=== PATIENT | male | born 1995 | race Caucasian/White ===

== ENCOUNTER → 2022-12-02 23:07 | Outpatient (CLI) | payer BC, SELFPAY ==
[2022-12-02 18:09] LABS: Basophils % 0.4 % (0.1-2.0); Eosinophils # 0.1 K/mm3 (0.0-0.4); Eosinophils % 1.8 % (0.1-12.0); Hematocrit 50.2 % (42.0-52.0); Hemoglobin 16.6 g/dL (14.1-18.0); Lymphocytes # 2.3 K/mm3 (0.7-4.5); Lymphocytes % 31.4 % (10-50); Mean Corpuscular HGB Conc 33.1 g/dL (31.8-35.4); Mean Corpuscular Hemoglobin 29.3 pg (27.0-31.2); Mean Corpuscular Volume 88.3 fl (80-94); Mean Platelet Volume 10.6 fl (7.4-10.4); Monocytes # 0.5 K/mm3 (0.1-1.0); Monocytes % 6.5 % (1.7-9.3); Neutrophils # 4.4 K/mm3 (1.8-7.8); Platelet Count 169 K/mm3 (142-424); Red Blood Count 5.68 M/mm3 (4.60-6.20); Red Cell Distribution Width 13.1 % (11.5-17.5); White Blood Count 7.3 K/mm3 (4.8-10.8)
[2022-12-02 18:17] LABS: Alanine Aminotransferase 28 U/L (12-78); Albumin Level 4.7 g/dl (3.5-5.0); Albumin/Globulin Ratio 1.4 (1.1-1.8); Alkaline Phosphatase 102 U/L (38-126); Anion Gap 19.5 mEq/L (5-15); Aspartate Amino Transferase 38 U/L (17-59); Bilirubin,Total 0.6 mg/dl (0.2-1.3); Blood Urea Nitrogen 14 mg/dl (9-20); Calcium 9.6 mg/dl (8.4-10.2); Carbon Dioxide 27 mmol/L (22.0-30.0); Chloride 98 mmol/L (98-107); Chol/HDL Ratio 5.8 (1-3.5); Cholesterol 175 mg/dl (140-200); Estimated Glomerular Filt Rate 114 ml/min (>60); GFR (African American) 138 ML/MIN (>60); Globulin 3.4 g/dL (1.3-3.2); Glucose 87 mg/dl (74-100); HDL Cholesterol 30 mg/dl (40-60); Potassium 4.5 mmoL/L (3.5-5.1); Sodium 140 mmol/L (136-145); Total Protein,Serum 8.1 g/dl (6.3-8.2); Triglycerides 247 mg/dl (30-150); VLDL Cholesterol 49 mg/dL (0-40)
[2022-12-02 18:30] LABS: Hemoglobin A1C 5.1 % (4.0-6.0)
[2022-12-02 18:47] LABS: Thyroid Stimulating Hormone 0.89 uIU/mL (0.465-4.68)
== END ==
PROVIDERS: PCP Nurse Practitioner; Visit Provider Nurse Practitioner
DX: Z00.00 Encounter for general adult medical examination without abnormal findings (principal); Z13.0 Encounter for screening for diseases of the blood and blood-forming organs and certain disorders involving the immune mechanism; Z13.1 Encounter for screening for diabetes mellitus; Z13.220 Encounter for screening for lipoid disorders; Z13.29 Encounter for screening for other suspected endocrine disorder
CPT/HCPCS: 80053; 80061; 83036; 84443; 85025

== ENCOUNTER → 2022-12-09 08:01 | Outpatient (CLI) | payer BC, SELFPAY | PROVIDERS: PCP Nurse Practitioner; Visit Provider Nurse Practitioner | DX: Z00.00 Encounter for general adult medical examination without abnormal findings (principal) ==

== ENCOUNTER 2024-02-21 07:39 | Outpatient (CLI) | payer BC, SELFPAY ==
--- NOTE | 2024-02-21 07:46 | XR_ITS ---
FINAL REPORT CLINICAL HISTORY: right hip pain COMPARISON: None FINDINGS: RIGHT HIP 3 views of the right hip demonstrate no acute fracture or dislocation. The joint spaces appear normal. The visualized bony structures are well aligned. No soft tissue abnormality is seen. IMPRESSION: No acute bony abnormality. Reviewed, Interpreted and Dictated by Michael Kate MD Transcribed by Nila Jasso Authenticated and [facility]
== END 2024-02-21 23:59 | disposition home or self-care (01) ==
LOC: RAD 07:41
PROVIDERS: PCP Nurse Practitioner; Visit Provider Nurse Practitioner
DX: M25.551 Pain in right hip (principal)
CPT/HCPCS: 73502

== ENCOUNTER 2024-02-27 15:56 | Outpatient (RCR) | payer BC, SELFPAY ==
--- NOTE | 2024-02-27 17:53 | HMH.PTOPEV ---
PT Outpatient Evaluation Rehab PT Outpatient Evaluation Start: 02/27/24 16:01 Freq: Status: Active Protocol: Document 02/27/24 16:02 PRINCEARIANNA (Rec: 02/27/24 17:52 SUSY [id number]) E-signed By Kimberly Morel, PT Outpatient Therapy Subjective History Subjective History Pt is a 28 y/o male who reports onset of R lateral hip pain in spring when he started playing softball. Pt denies trauma or injury. Pt reports pain was mild and would ease off in 2-3 days. Pt reports re-exacerbation of pain while playing summer softball 2 weeks ago. Pt reports intensity of pain worsened and pain was more constant in nature. Pt reports pain is aggravated by prolonged standing/walking, walking with his right leg externally rotated, pushing off the right leg especially when in ER, leading up/down stairs with the right leg and traversing steep terrain. Pt reports his leg would often feel like it would give out on him, denies falls due to this . Pt denies clicking, catching , or locking sensations of the hip. Pt reports mild improvement in pain since re- exacerbation; however, states he has not been playing softball, has changed his walking pattern and is leading with his left leg with stairs at work. Pt had a R hip xray on 02/21/24 with impression of No acute bony abnormality. Pt reports he was prescribed an anti-inflammatory medication he took for 2 days without noted improvements so he quit taking it. Pt denies further comorbidities to report. 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 Chief Complaint Pain,Weakness Symptom Type Ache,Sharp,Dull Symptoms Relieved By Rest/Positioning Symptoms Aggravated By Standing,Physical Activity, Twisting,Walking Current Functional Limitations Standing,Recreation Activity, Walking,Stairs Symptom Description Constant but Variable Level of pain today (0-10) 2 Pain scale - at its best (0-10) 0 Pain scale - at its worst (0-10) 5 Hip/Knee Eval Gait Observation General Gait Pattern Observation No Deviations/Normal Assistive Device Assistive Devices None / NA Palpation Tenderness right Knee Palpation Overall Comment 1/4 TTP of glute med/min, greather trochanter Hip Palpation Findings Tenderness MMT Hip Flexion Strength Grade 4 Good Hip Abduction Strength Grade 4 Good Hip Adduction Strength Grade 5 Normal Hip Extension Strength Grade 4 Good Hip External Rotation Strength Grade 4 Good Hip Internal Rotation Strength Grade 4 Good ROM Hip Flexion w/Knee Flexed Active Range 115 of Motion (degrees) Hip External Rotation Active Range of 35 Motion (degrees) Hip Internal Rotation Active Range of 40 Motion (degrees) Special Tests Hip Ethan Test Negative Right Hip Piriformis Test Negative Right Sciatic Nerve Tension Test Negative Right Hip Scouring (Quadrant) Test Negative Right Lower Extremity Functional Index Activities Today, do you or would you have any difficulty at all with: a.Any of your usual work, housework or A little bit of difficulty school activities b. Your usual hobbies, recreational or Moderate difficulty sporting activities c. Getting into or out of the bath No difficulty d. Walking between rooms A little bit of difficulty e. Putting on your shoes or socks A little bit of difficulty f. Squatting A little bit of difficulty g. Lifting an object, like a bag of No difficulty groceries from the floor h. Performing light activities around A little bit of difficulty your home i. Performing heavy activities around Moderate difficulty your home j. Getting into or out of a car A little bit of difficulty k. Walking 2 blocks No difficulty l. Walking a mile A little bit of difficulty m. Going up or down 10 stairs (about 1 A little bit of difficulty flight of stairs) n. Standing for 1 hour A little bit of difficulty o. Sitting for 1 hour No difficulty p. Running on even ground A little bit of difficulty q. Running on uneven ground Moderate difficulty r. Making sharp turns while running fast Moderate difficulty s. Hopping A little bit of difficulty t. Rolling over in bed A little bit of difficulty LEFI Score Lower Extremity Functional Index Score 60 Outpatient Therapy Assessment Impairments Problems/Impairmments Palpation Tenderness,Impaired Range of Motion,Impaired Strength,Impaired Gait Pattern ,Impaired Walking,Impaired Stair Climbing,Impaired Incline Stepping,Impaired Recreational Activities, Impaired Running,Impaired Work Activities,Subjective C/O Pain,Impaired Self Care/Self Management Prognosis Rehab Potential Good Clinical Impression Consistent with Diagnosis Yes Short Term Goals Number of Weeks 2 Improve Self Care/Self Management Yes Patient to be Ind w/ HEP Yes Mcfp Goals Number of Weeks 4-6 Increase Range of Motion Yes: Improve R hip AROM IR/ER to 45 Increase Strength Yes: Improve R hip/core strength to 4+-5/5 grossly to assist with function Improve Ability to Climb Stairs Yes: traverse fork lift steps with pain 2/10 or less to assist with work Return to Recreational Activities Yes: report ability to play softball with pain 2/10 or less Improve LEFI Score Yes: Improve score to 70/80 to improve overall QOL Decrease Subjective C/O Pain Yes: Improve pain at worst to 2-3/10 to improve overall QOL Outpatient Therapy Plan of Care Treatment Plan May Include Therapeutic Exercise Including Home Yes Exercise Program Manual Therapy Techniques Yes Neuromuscular Re-education Yes Therapeutic Activities to Return to Yes Previous Functional/Work Level Gait Training Yes ADL/Self Care Education Yes Mechanical Traction Yes Dry Needling Yes Thermal Modalities Yes Electrical Stimulation Yes Ultrasound/Phonophoresis Yes Iontophoresis Yes Orthotics/Bracing/Splinting Yes Vasopneumatic Compression Pump Yes Massage Yes Eval/Re-Eval Yes Frequency Times per week 2 Duration Number of Weeks 4-6 Addendums This patient is a candidate for social No or vocational rehab? Patient/Guardian verbally acknowledges Yes understanding of treatment program and consents to further treatment? Patient/Guardian verbally acknowledges Yes understanding of diagnosis, prognosis and goals for treatment? Eval Complexity PT Charges 70377 - Low Complexity Shoulder/Elbow Eval Shoulder Objective Measurements Elbow Objective Measurements PHYSICIAN CERTIFICATION: I certify the specified therapy services for Scottie Mcneil are required, authorized, and reviewed every 30 days.
== END 2024-02-27 15:59 | disposition home or self-care (01) ==
LOC: PT 15:56
PROVIDERS: Visit Provider Nurse Practitioner
DX: M25.551 Pain in right hip (principal)
CPT/HCPCS: 97163

== ENCOUNTER 2025-03-13 16:09 | Outpatient (CLI) | payer BC, SELFPAY ==
--- OUTSIDE RECORDS SUMMARY | 2025-03-13 16:11 | XMS_ITS | Clinical Summary ---
Author Organization [facility] Address [address] [place] [id number] Care Team Providers Care Improvement Engineer Name Role Phone Pcp, No Primary Care Provider [phone] Source Comments This information has been disclosed to you from confidential records protectedfrom disclosure by state law. You shall make no further disclosure of thisinformation without the specific, written, and informed release of theindividual to whom it pertains, or as otherwise permitted by law. A generalauthorization for the release of medical or other information is not sufficientfor the purposes of therelease of HIV test results or diagnoses. [id number] Allergies Active Allergy Reactions Criticality Noted Date Comments Hydrocodone-Acetaminophen 05/26/2018 Other reaction(s): Itching Medications aspirin-acetamin ophen-caffeine (EXCEDRIN EXTRA STRENGTH) 250-250-65 mg per tablet Take 1 tablet by mouth every 6 hours as needed for Pain. 30 tablet 01/16/2021 Active Social History Tobacco Use Types Packs/Day Years Used Date Smoking Tobacco: Former Smokeless Tobacco: Current Chew Sex and Gender Information Value Date Recorded Sex Assigned at Not on file Legal Sex Male 6:33 PM EST Gender Identity Not on file Sexual Orientation Not on file Last Filed Vital Signs Vital Sign Reading Time Taken Comments Blood Pressure 139/72 01/16/2021 6:05 AM EDT Pulse 58 01/16/2021 6:05 AM EDT Temperature 36.4 C (97.6 F) 01/16/2021 6:05 AM EDT Respiratory Rate 16 01/16/2021 6:05 AM EDT Oxygen Saturation 98% 01/16/2021 6:05 AM EDT Inhaled Oxygen Concentration 98% 01/16/2021 6 :05 AM EDT Weight - - Height - - Body Mass Index - - Plan of Treatment Not on file Care Teams Improvement Engineer Relationship Specialty Start Date End Date Pcp, No No Address PCP - General 01/16/21
--- OUTSIDE RECORDS SUMMARY | 2025-03-13 16:11 | XMS_ITS | Clinical Summary ---
Author Organization Healthcare Address [address] [id number] Care Team Providers Care Radiation Therapy Technician Name Role Phone Marlen Quintanilla APRN Primary Care Provider [phone] Allergies Active Allergy Reactions Criticality Noted Date Comments Hydrocodone-Acetaminophen Itching Medium 05/26/2018 Other reaction(s): Itching Medications No known medications Active Problems No known active problems Social History Tobacco Use Types Packs/Day Years Used Date Smoking Tobacco: Never Assessed Sex and Gender Information Value Date Recorded Sex Assigned at Not on file Legal Sex Male 1:10 PM EST Gender Identity Not on file Sexual Orientation Not on file Last Filed Vital Signs Vital Sign Reading Time Taken Comments Blood Pressure 146/85 08/02/2023 1:40 PM EST Pulse 87 08/02/2023 1:40 PM EST Temperature 36.8 C (98.3 F) 08/02/2023 1:40 PM EST Respiratory Rate 18 08/02/2023 1:40 PM EST Oxygen Saturation 97% 08/02/2023 1:40 PM EST Inhaled Oxygen Concentration - - Weight 108 kg (237 lb 14 oz) 08/02/2023 1:40 PM EST Height 179.1 cm (5' 10.5 ) 08/02/2023 1:[address] Body Mass Index 33.65 08/02/2023 1:40 PM EST Plan of Treatment Not on file Insurance [employer] Member Subscriber Plan / Payer (Ef fective 2022-Present) Name:Scottie Mcneil Relation to Subscriber:Self Name:Ewa Scottie Payer ID:[id number] (NAIC) Type:Not on file Address: [place] [phone] Care Teams Radiation Therapy Technician Relationship Specialty Start Date End Date Marlen Quintanilla APRN [address] [place] [address] PCP - General 08/02/23
--- NOTE | 2025-03-13 16:12 | XR_ITS ---
PROCEDURE INFORMATION: Exam: XR Left Foot Exam date and time: 03/13/2025 4:17 PM Age: 30 years old Clinical indication: Pain; Ankle; Left; Additional info: Left medial foot and ankle pain after injury TECHNIQUE: Imaging protocol: Radiologic exam of the left foot. Views: 3 or more views. COMPARISON: No relevant prior studies available. FINDINGS: Bones/joints: No acute fracture. Probable healed fracture fifth metatarsal. No dislocation. Soft tissues: Unremarkable. IMPRESSION: No fracture. If pain persists, suggest splinting and follow up radiographs in 7-10 days.
--- NOTE | 2025-03-13 16:12 | XR_ITS ---
PROCEDURE INFORMATION: Exam: XR Left Ankle Exam date and time: 03/13/2025 4:17 PM Age: 30 years old Clinical indication: Pain; Ankle; Left; Additional info: Medial left foot and ankle pain after injury TECHNIQUE: Imaging protocol: Radiologic exam of the left ankle. Views: 3 or more views. COMPARISON: No relevant prior studies available. FINDINGS: Bones/joints: No acute fracture. No dislocation. No significant joint effusion. Soft tissues: Unremarkable. IMPRESSION: No fracture. If pain persists, suggest splinting and follow up radiographs in 7-10 days.
== END 2025-03-13 23:59 | disposition home or self-care (01) ==
LOC: RAD 16:09
PROVIDERS: PCP Nurse Practitioner; Visit Provider Nurse Practitioner
DX: S99.922A Unspecified injury of left foot, initial encounter (principal); S99.912A Unspecified injury of left ankle, initial encounter; M79.672 Pain in left foot; M25.572 Pain in left ankle and joints of left foot
CPT/HCPCS: 73610; 73630